=== PATIENT | male | born 1970 | race African-American/Black ===

== ENCOUNTER 2017-10-13 22:10 | Emergency (ER) | payer SELFPAY ==
[~2017-10-13] VITALS: Ht 170.2 cm; Wt 63.0 kg
[2017-10-14 09:01] VITALS: BP 125/79
== END 2017-10-14 09:02 | disposition home or self-care (01) ==
LOC: ER 22:10
DX: R50.9 Fever, unspecified (principal); R05 Cough; F17.200 Nicotine dependence, unspecified, uncomplicated; F12.10 Cannabis abuse, uncomplicated
CPT/HCPCS: 71045; 87804; 99285; J7030; X7700; Z7610

== ENCOUNTER 2017-12-15 00:46 | Emergency (ER) | payer MEDICAID ==
[~2017-12-15] VITALS: Ht 170.2 cm; Wt 66.0 kg
[2017-12-15 01:32] VITALS: BP 104/66
== END 2017-12-15 06:17 | disposition left against medical advice (07) ==
LOC: ER 04:24
DX: R42 Dizziness and giddiness (principal); Z53.21 Procedure and treatment not carried out due to patient leaving prior to being seen by health care provider

== ENCOUNTER 2018-01-26 23:05 | Emergency (ER) | payer MEDICAID ==
[~2018-01-26] VITALS: Ht 170.2 cm; Wt 66.0 kg
[2018-01-27] MEDS ORDERED: ACETAMINOPHEN 500MG TABLET PO ONE (03:30)
[2018-01-27] MEDS ORDERED: ONDANSETRON 4MG ODT PO ONE (03:30)
[2018-01-27 04:04] VITALS: BP 110/72
== END 2018-01-27 04:31 | disposition home or self-care (01) ==
LOC: ER 23:05
DX: R11.0 Nausea (principal); R19.7 Diarrhea, unspecified; R51 Headache; R53.1 Weakness; F17.200 Nicotine dependence, unspecified, uncomplicated; F12.10 Cannabis abuse, uncomplicated; Z59.0 Homelessness
CPT/HCPCS: 99283; Q0162; Z7610

== ENCOUNTER 2018-03-13 00:51 | Emergency (ER) | payer MEDICAID ==
[~2018-03-13] VITALS: Ht 167.6 cm; Wt 66.0 kg
[2018-03-13 04:00] VITALS: BP 110/65
[2018-03-13] MEDS ORDERED: MECLIZINE 25MG TABLET PO ONE (04:30)
[2018-03-13] MEDS ORDERED: ACETAMINOPHEN 325MG TABLET PO ONE (04:30)
== END 2018-03-13 06:00 | disposition home or self-care (01) ==
LOC: ER 00:52
DX: B34.9 Viral infection, unspecified (principal); R42 Dizziness and giddiness; R51 Headache; F17.200 Nicotine dependence, unspecified, uncomplicated
CPT/HCPCS: 99283; J8597

== ENCOUNTER 2018-03-22 03:37 | Emergency (ER) | payer MEDICAID ==
[~2018-03-22] VITALS: Ht 170.2 cm; Wt 66.0 kg
[2018-03-22] MEDS ORDERED: KETOROLAC 30MG/ML VIAL IM ONE (06:15)
[2018-03-22] MEDS ORDERED: CYCLOBENZAPRINE 10MG TABLET PO ONE (06:15)
[2018-03-22] MEDS ORDERED: IBUPROFEN 800MG TABLET PO ONE (07:15)
[2018-03-22 09:10] VITALS: BP 118/62
== END 2018-03-22 09:12 | disposition home or self-care (01) ==
LOC: ER 03:37
DX: M54.5 Low back pain (principal)
CPT/HCPCS: 96372; 99283; J1885

== ENCOUNTER 2018-03-23 23:53 | Emergency (ER) | payer MEDICAID ==
[~2018-03-23] VITALS: Ht 170.2 cm; Wt 65.0 kg
[2018-03-23 23:58] VITALS: BP 115/70
[2018-03-24] MEDS ORDERED: KETOROLAC 60MG/2ML VIAL IM ONE (07:00)
[2018-03-24] MEDS ORDERED: CYCLOBENZAPRINE 10MG TABLET PO ONE (07:00)
== END 2018-03-24 07:52 | disposition left against medical advice (07) ==
LOC: ER 23:53
DX: S39.012A Strain of muscle, fascia and tendon of lower back, initial encounter (principal); Q05.9 Spina bifida, unspecified; X58.XXXA Exposure to other specified factors, initial encounter; Y93.9 Activity, unspecified; F17.200 Nicotine dependence, unspecified, uncomplicated
CPT/HCPCS: 72100; 99284

== ENCOUNTER 2018-04-06 03:53 | Emergency (ER) | payer MEDICAID ==
[~2018-04-06] VITALS: Ht 170.2 cm; Wt 68.0 kg
[2018-04-06 04:07] VITALS: BP 111/64
== END 2018-04-06 08:30 | disposition left against medical advice (07) ==
LOC: ER 03:53
DX: Z53.21 Procedure and treatment not carried out due to patient leaving prior to being seen by health care provider (principal)

== ENCOUNTER 2018-04-07 01:07 | Emergency (ER) | payer MEDICAID ==
[~2018-04-07] VITALS: Ht 170.2 cm; Wt 66.0 kg
[2018-04-07 01:26] VITALS: BP 112/67
== END 2018-04-07 04:05 | disposition left against medical advice (07) ==
LOC: ER 01:07
DX: M25.551 Pain in right hip (principal); Z53.21 Procedure and treatment not carried out due to patient leaving prior to being seen by health care provider

== ENCOUNTER 2018-04-09 00:48 | Emergency (ER) | payer MEDICAID ==
[~2018-04-09] VITALS: Ht 170.2 cm; Wt 66.0 kg
[2018-04-09 01:03] VITALS: BP 105/60
== END 2018-04-09 06:37 | disposition left against medical advice (07) ==
LOC: ER 00:48
DX: Z53.21 Procedure and treatment not carried out due to patient leaving prior to being seen by health care provider (principal); F17.200 Nicotine dependence, unspecified, uncomplicated

== ENCOUNTER 2018-04-28 23:43 | Emergency (ER) | payer MEDICAID | END 2018-04-29 04:00 | disposition left against medical advice (07) | LOC: ER 04-29 03:15 | DX: M79.673 Pain in unspecified foot (principal); Z53.21 Procedure and treatment not carried out due to patient leaving prior to being seen by health care provider ==

== ENCOUNTER 2018-06-16 22:55 | Emergency (ER) | payer MEDICAID ==
[~2018-06-16] VITALS: Ht 167.6 cm; Wt 67.0 kg
[2018-06-17 01:20] VITALS: BP 116/74
== END 2018-06-17 01:30 | disposition home or self-care (01) ==
LOC: ER 23:00
DX: B34.9 Viral infection, unspecified (principal); F12.10 Cannabis abuse, uncomplicated; R42 Dizziness and giddiness; R53.1 Weakness
CPT/HCPCS: 99283

== ENCOUNTER 2018-07-03 09:48 | Emergency (ER) | payer MEDICAID ==
[~2018-07-03] VITALS: Ht 167.6 cm; Wt 65.0 kg
[2018-07-03 12:30] VITALS: BP 118/72
== END 2018-07-03 12:59 | disposition home or self-care (01) ==
LOC: ER 09:48
DX: R53.1 Weakness (principal); E86.0 Dehydration; F12.10 Cannabis abuse, uncomplicated; R11.2 Nausea with vomiting, unspecified
CPT/HCPCS: 99283

== ENCOUNTER 2019-03-11 00:27 | Emergency (ER) | payer MEDICAID ==
[~2019-03-11] VITALS: Ht 177.8 cm; Wt 82.0 kg
[2019-03-11 05:47] LABS: CLARITY URINE CLEAR (CLEAR); COLOR URINE YELLOW (YELLOW); KETONES URINE NEGATIVE (NEGATIVE); LEUKOCYTE ESTERASE URINE NEGATIVE (NEGATIVE); NITRITE URINE NEGATIVE (NEGATIVE); OCCULT BLOOD URINE NEGATIVE (NEGATIVE); PH URINE 6.5 (4.5-8.0); PROTEIN URINE NEGATIVE (NEGATIVE); UROBILINOGEN URINE 0.2 E.U./dL (0.2-1.0)
[2019-03-11 06:01] LABS: *AMPHETAMINES SCREEN URINE NEGATIVE (NEGATIVE); *BARBITURATES SCREEN URINE NEGATIVE (NEGATIVE); *BENZODIAZEPINES SCREEN URINE NEGATIVE (NEGATIVE); *COCAINE SCREEN URINE NEGATIVE (NEGATIVE)
[2019-03-11 06:02] LABS: CANNABINOID URINE SCREEN NEGATIVE (NEGATIVE); METHADONE URINE SCREEN NEGATIVE (NEGATIVE); OPIATES URINE SCREEN NEGATIVE (NEGATIVE); PHENCYCLIDINE URINE SCREEN NEGATIVE (NEGATIVE)
[2019-03-11 16:00] VITALS: BP 106/79
== END 2019-03-12 15:45 | disposition home or self-care (01) ==
LOC: ER 00:27
DX: F22 Delusional disorders (principal); F12.10 Cannabis abuse, uncomplicated
CPT/HCPCS: 80305; 99284

== ENCOUNTER 2019-04-02 10:58 | Emergency (ER) | payer MEDICAID ==
[~2019-04-02] VITALS: Ht 170.2 cm; Wt 66.0 kg
[2019-04-02] MEDS ORDERED: IPRATROPIUM BROMIDE (0.02%) 0.5MG/2.5ML NEB HHN STA (12:37)
[2019-04-02] MEDS ORDERED: AZITHROMYCIN 500 MG TABLET PO STA (12:37)
[2019-04-02] MEDS ORDERED: PREDNISONE 20MG TABLET PO STA (12:37)
[2019-04-02] MEDS ORDERED: ONDANSETRON 4MG ODT PO ONE (12:45)
[2019-04-02 15:40] VITALS: BP 116/56
== END 2019-04-02 15:45 | disposition home or self-care (01) ==
LOC: ER 13:41
DX: J44.1 Chronic obstructive pulmonary disease with (acute) exacerbation (principal); F17.200 Nicotine dependence, unspecified, uncomplicated
CPT/HCPCS: 71045; 94640; 99284; 99406; J7512; Q0162; Z7610

== ENCOUNTER 2019-04-18 10:57 | Emergency (ER) | payer MEDICAID, OTHER ==
[~2019-04-18] VITALS: Ht 170.2 cm; Wt 66.0 kg
[2019-04-18 11:07] VITALS: BP 130/80
== END 2019-04-18 16:46 | disposition home or self-care (01) ==
LOC: ER 10:57
DX: Z00.01 Encounter for general adult medical examination with abnormal findings (principal); Z86.11 Personal history of tuberculosis; Z87.09 Personal history of other diseases of the respiratory system
CPT/HCPCS: 99281

== ENCOUNTER 2019-12-15 16:49 | Emergency (ER) | payer OTHER ==
[~2019-12-15] VITALS: Ht 170.2 cm; Wt 66.0 kg
[2019-12-15 16:56] VITALS: BP 146/91
[2019-12-15] MEDS ORDERED: DIPHENHYDRAMINE 50MG CAPSULE PO ONE (20:45)
[2019-12-15] MEDS ORDERED: FAMOTIDINE 20MG TABLET PO ONE (20:45)
[2019-12-15] MEDS ORDERED: PREDNISONE 20MG TABLET PO ONE (20:45)
== END 2019-12-15 21:04 | disposition left against medical advice (07) ==
LOC: ER 16:49
DX: R21 Rash and other nonspecific skin eruption (principal)
CPT/HCPCS: 99281; J7512; Q0163